=== PATIENT | male | born 2000 | race Asian ===

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

== ENCOUNTER 2019-05-19 18:27 | Emergency (ER) | payer BC ==
[~2019-05-19] VITALS: Ht 167.6 cm; Wt 53.5 kg
[2019-05-19 18:31] VITALS: BP 126/77
--- NOTE | 2019-05-19 18:41 | NUR ---
PT AMBULATED TO ER BED 08
--- NOTE | 2019-05-19 19:05 | NUR ---
PT BIB SELF TO THE ED WITH THE CHIEF C/O NAUSEA, DIARRHEA SINCE THIS MORNING UNABLE TO CONCENTRATE, BLURRY VISION "CAN'T FOCUS OR READ". PER PT HE IS SEEKING MEDICAL ATTENTION FOR POSSIBLE AUROA FOR SEIZURE. AUORA: LEGS AND ARMS GET TIGHT AND "FEELS WEIRD FOR HOUR." PT STATES OF HEADACHE 6/10 AT THIS TIME. BREATHING NORMALLY. PLACED PT ON SEIZURE PRECAUTION. VSS AT THIS TIME.
--- NOTE | 2019-05-19 19:09 | NUR ---
Dr. Estrada examining patient.
[2019-05-19] MEDS ORDERED: ONDANSETRON 4 MG/2 ML VIAL IVP ONE (19:20)
[2019-05-19] MEDS ORDERED: KETOROLAC 30 MG/ML VIAL IVP ONE (19:20)
[2019-05-19] MEDS ORDERED: NACL 0.9% 500 ML IV ONE (19:20)
--- NOTE | 2019-05-19 19:24 | NUR ---
ENDORSED TO [employer] ENGINEERING SUPERVISOR RN FOR CONTINUITY OF CARE.
--- NOTE | 2019-05-19 19:30 | NUR ---
PT TAKEN TO XRAY VIA WC.
--- NOTE | 2019-05-19 20:14 | NUR ---
# 20 left ac inserted. 500ml Normal Saline at 100cc/hr started as per order. ordered Toradol 30mg/ml ivp given. zofran 4mg/2l ivp as per order was also given. Lab drawn by the dental lab technician. Patient made comfortable and resting at this time. will monitor.
[2019-05-19 20:23] LABS: HEMATOCRIT 47.7 % (36-52); HEMOGLOBIN 16.1 g/dL (12.0-18.0); MEAN CORPUSCULAR HEMOGLOBIN 30 pg (27-31); MEAN CORPUSCULAR HGB CONC 34 g/dL (33-37); PLATELET COUNT (AUTO) 182 K/uL (140-450); RED CELL DISTRIBUTION WIDTH 12.9 % (11.6-13.7); WHITE BLOOD COUNT (AUTO) 7.5 K/uL (4.5-11.0)
[2019-05-19 20:36] LABS: ANION GAP 15.4 (8-16); CARBON DIOXIDE 25.9 mmol/L (21-32); CREATININE 0.7 mg/dL (0.7-1.3); POTASSIUM 3.3 mmol/L (3.5-5.1)
[2019-05-19 20:42] LABS: BASOPHILS % (MANUAL) 0 % (0-2); EOSINOPHILS % (MANUAL) 2 % (0-4); LYMPHOCYTES % (MANUAL) 7 % (20-46); MONOCYTES % (MANUAL) 7 % (5-12)
[2019-05-19 20:43] LABS: ALBUMIN 4.3 g/dL (3.4-5.0); TOTAL BILIRUBIN 0.9 mg/dL (0.0-1.0)
[2019-05-19 20:57] VITALS: BP 103/70
--- NOTE | 2019-05-19 20:57 | NUR ---
Patient discharged with v/s stable. Written and verbal after care instructions given and explained. Pt encouraged to try the brat diet; bananas, rice, applesauce and toast. Pt also encouraged to stay well hydrated. Patient alert, oriented and verbalized understanding of instructions. Ambulatory with steady gait. All questions addressed prior to discharge. ID band removed. Patient advised to follow up with PMD. Rx of ZOFRAN 4MG was given. Patient educated on indication of medication including possible reaction and side effects. Opportunity to ask questions provided and answered.
== END 2019-05-19 20:57 | disposition home or self-care (01) ==
LOC: MED 18:27
DX: K52.9 Noninfective gastroenteritis and colitis, unspecified (principal); H53.8 Other visual disturbances; R51 Headache
CPT/HCPCS: 36415; 74022; 80053; 85025; 96361; 96374; 96375; 99284; J1885; J2405; J7030